=== PATIENT | female | born 1965 | race Caucasian/White ===

== ENCOUNTER → 2017-02-07 | Outpatient (CLI) | payer BC ==
[~2017-02-07] MED LIST: ABILIFY10 MG; AMOXICILLIN 25250 MG PO; CIPRO 0.3% OT; CIPRO HC OTIC S10 M1 OT; DEX OT; MAXZIDE 25 MG-31 TAB PO; PEPCID 20MG TAB20 MG PO; VICODIN 5/500 T1 TAB PO; [UNRECOGNIZED DRUG - OTHER] OP
--- NOTE | 2017-02-07 16:41 | RADIOLOGY REPORT PS360 ---
US PELVIS-TRANSVAGINAL and transabdominal scanning HISTORY: PELVIC PAINCT pelvis in August showed cyst on right ovary. Uterus is been removed in 2004. Patient Age: 51 years: Female Ordering Physician: Efren Awad MD TECHNIQUE: Transvaginal and transabdominal pelvic ultrasound COMPARISON :CT abdomen and pelvis 08/30/2016 FINDINGS Difficult exam Uterus surgically removed. Right ovary. 2.8 x 1.3 x 2.65 cm Right ovary difficult to visualize. What appear to be right ovary was only identified with transabdominal scanning Left ovary 3.5 x 2.9 x 3.3 cm. Left ovary cyst evident measured to 3.2 x 2.6 cm the clear cyst with fairly smooth villalobos. Similar size to the CT study in August significant enlargement only question incremental enlargement 1 to 2 mm No fluid in cul-de-sac IMPRESSION: 1. Uterus surgically absent. 2. Left ovary cyst measuring up to 3.2 cm Cyst left ovary persists. Similar size since CT study August 2016. Onlyhint incrementally progression No fluid in cul-de-sac. 3. Right ovary difficult to visualize wall normal size.
--- NOTE | 2017-02-09 23:00 | RADIOLOGY REPORT PS360 ---
DEXA SCAN.-BONE DENSITY STUDY HIPS AND LUMBAR SPINE HISTORY: Postmenopausal female 51-year-old previous hysterectomy. postmenopausal female. No therapy is listedOccasional alcohol. GERD. TECHNIQUE: DEXA scan hip and lumbar spine The most complete data summary and color graphic presentation of the today's ( and any prior ) DEXA findings are available in PACS. Definition and treatment guidelines included. COMPARISON No previous studies available in PACS. LUMBAR SPINE: Normal density. L1 vertebral body demonstrates the lowest T score 0.1 with BMD1.46 g/cm sq Overall mean lumbar L1-L4 T score 0.4 with BMD1.224 g/cm sq . HIPS: Femoral neck density is best predictor of hip fracture risk . Left femoral neck demonstrates the lowest T score 0.1 with BMD1.05 g/cm sq . Right femoral neck T score = 0.4 and BMD 1.87. Averaging all regions bilaterally yield today's Hip Mean T score 1.5 with [id number]. g/cm sq .. The limited images here does suggest sclerosis and developing changes at both hips. IMPRESSION 1. LUMBAR SPINE: Normal bone density. Normal density Throughout lumbar spine at at all levels 2. HIPS: Normal overall bony density, as well as normal bone density at the femoral neck WHO criteria for post-menopausal, Women: Normal: T-score at or above -1 SD Osteopenia: T-score between -1 and -2.5 SD Osteoporosis: T-score at or below -2.5 SD
== END ==
LOC: RAD 13:00
DX: R10.2 Pelvic and perineal pain (principal); Z01.419 Encounter for gynecological examination (general) (routine) without abnormal findings; Z78.0 Asymptomatic menopausal state; Z12.31 Encounter for screening mammogram for malignant neoplasm of breast

== ENCOUNTER → 2017-02-11 | Outpatient (CLI) | payer BC | LOC: LAB 16:31 | DX: R87.610 Atypical squamous cells of undetermined significance on cytologic smear of cervix (ASC-US) (principal) ==

== ENCOUNTER → 2017-02-28 | Outpatient (CLI) | payer BC ==
--- NOTE | 2017-02-28 16:32 | RADIOLOGY REPORT PS360 ---
US PELVIS-TRANSVAGINAL ONLY HISTORY: Follow-up left ovarian cyst OVARIAN CYST ORDERING PHYSICIAN: Efren Awad MD PATIENT AGE: 52 years COMPARISON: 02/07/2017 FINDINGS: There is been prior hysterectomy. Left ovary measures 3.9 x 3.2 x 3.1 cm. There is a persistent left ovarian cyst which measures 3.4 x 2.6 cm. The cyst has a benign appearance. No internal septations or wall thickening. The right ovary is 1.7 x 1.4 cm. No cul-de-sac fluid is evident. IMPRESSION: Persistent 3 cm left ovarian cyst not significantly changed
--- NOTE | 2017-02-28 16:35 | RADIOLOGY REPORT PS360 ---
US MNDCAQ-AGOVES-LLNEJSSBUSBU HISTORY: Follow-up abnormal CT, renal cyst RENAL CYST ORDERING PHYSICIAN: Efren Awad MD PATIENT AGE: 52 years COMPARISON: CT scan of 08/30/2016 FINDINGS: RIGHT KIDNEY:10 x 5 x 6.7 cm. No hydronephrosis mass or perinephric fluid. LEFT KIDNEY:11 x 5 x 6 cm. No hydronephrosis, mass, or perinephric fluid OTHER FINDINGS: No other pertinent findings IMPRESSION: Negative bilateral renal ultrasound. Previously the CT scan demonstrated a hypodense lesion along the anterior aspect of the left kidney. A cyst is not identified in this area on ultrasound however, this is a difficult area to image with ultrasound especially with patient's body habitus. Cannot exclude the possibility of a solid lesion.. Recommend CT of the kidneys without and with three-phase contrast enhancement for evaluation.
== END ==
LOC: RAD 02-26 14:00
DX: N94.89 Other specified conditions associated with female genital organs and menstrual cycle (principal); N83.209 Unspecified ovarian cyst, unspecified side; N28.1 Cyst of kidney, acquired

== ENCOUNTER → 2017-03-07 | Outpatient (CLI) | payer BC ==
--- NOTE | 2017-03-14 14:26 | RADIOLOGY REPORT PS360 ---
DIG MAMM-SCREEN DOMINIQUE W/CAD CAD Screening COMPARISON: Digital mammograms 03/05/2016 and 02/08/2015 INDICATION: There is no personal or family history of breast cancer TECHNIQUE: Standard CC and MLO images were obtained. R2 CAD reviewed. FINDINGS: The breasts are composed entirely of fat with minimal scattered fibroglandular densities in each breast. There is a mole marker upper outer quadrant right breast. There are couple benign-appearing calcifications in each breast. There is no suspicious lesion and there are no suspicious microcalcifications. IMPRESSION: Fatty type breast parenchyma with no suspicious lesion seen recommend yearly follow-up BI-RADS CATEGORY: 2_Benign RECOMMENDED FOLLOWUP: 12M 12 MONTH FOLLOW-UP (A letter has been sent to the patient regarding results of the study.)
== END ==
LOC: RAD 16:00
DX: Z01.419 Encounter for gynecological examination (general) (routine) without abnormal findings (principal); Z78.0 Asymptomatic menopausal state; Z12.31 Encounter for screening mammogram for malignant neoplasm of breast
CPT/HCPCS: G0202